=== PATIENT | male | born 1965 | race Caucasian/White ===

== ENCOUNTER 2017-10-21 08:44 | Outpatient (CLI) | payer BC ==
[2017-10-21] MEDS ORDERED: Iopamidol 370 76% 100 ML VIAL ONE (15:11)
== END 2017-10-21 08:45 | disposition home or self-care (01) ==
LOC: CT 08:44
PROVIDERS: ATTEND Internal Medicine Gastroenterology
DX: K50.00 Crohn's disease of small intestine without complications (principal)
CPT/HCPCS: 74178

== ENCOUNTER 2017-11-13 09:28 | Emergency (ER) | payer BC ==
[2017-11-13 10:44] LABS: #Basophils 0.1 thou/uL (0.0-0.2); #Lymphocytes 0.3 thou/uL (1.20-3.40); #Monocytes 0.6 thou/uL (0.11-0.59); #Neutrophils 9.3 thou/uL (1.40-6.50); %Basophils 0.5 % (0.0-1.0); %Eosinophils 0.3 % (0.0-10.0); %Lymphocytes 3.3 % (21.0-51.0); %Monocytes 5.4 % (0.0-10.0); %Neutrophils 90.5 % (42.0-75.0); Hemoglobin 18.6 g/dL (14.0-18.0); Mean Corpuscular HGB CONC 35.3 g/dL (32.0-36.0); Mean Corpuscular Hemoglobin 33.7 pg (27.0-31.0); Mean Corpuscular Volume 95.5 fl (80.0-94.0); Mean Platelet Volume 7.3 fL (7.4-10.4); Platelet Count 209 thou/uL (130-400); RBC Distribution Width 13.8 % (11.5-14.5); Red Blood Cell (RBC) Count 5.53 mill/uL (4.70-6.10); White Blood Cell (WBC) Count 10.3 thou/uL (4.8-10.8)
[2017-11-13 11:09] LABS: ALT (SGPT) 18 U/L (8-55); AST (SGOT) 21 U/L (5-34); Albumin 4.5 g/dL (3.5-5.0); Alkaline Phosphatase 52 U/L (40-150); Anion Gap 16 mmol/L (10-20); BUN (Urea Nitrogen) 16 mg/dL (8.4-25.7); Bilirubin, Total 1.3 mg/dL (0.2-1.2); Calc. Creatinine Clearance 0 mL/min (70-130); Carbon Dioxide 24 mmol/L (22-29); Chloride 104 mmol/L (98-107); Estimated GFR-MDRD 70; Globulin 3.4 g/dL (2.4-3.5); Glucose 118 mg/dL (70-105); Lipase 58 U/L (8-78); Potassium 3.9 mmol/L (3.5-5.1); Protein, Total 7.9 g/dL (6.0-8.3); Sodium 140 mmol/L (136-145)
[2017-11-13] MEDS ORDERED: ISOVUE-370 76%-LOCM 1 ML ONE (11:34)
--- NOTE | 2017-11-13 11:59 | CT ---
ABDOMEN AND PELVIC CT SCAN WITH IV CONTRAST: HISTORY: A 52-year-old male with a history of vomiting and constipation. The patient was diagnosed with C. di ff 3 weeks ago and is taking vancomycin. History of Crohn's disease. FINDINGS: Mild linear nonspecific stranding in the lung bases. There are numerous small low-attenuation foci w ithin the liver consistent with small cysts as well as some tiny calcific foci within the liver. Pos sible gallstone in the dependent portion of the gallbladder without evidence for acute cholecystitis by CT. Pancreas and spleen appear unremarkable. Adrenal glands are unremarkable. No renal calculus or acute obstruction. There are noted to be markedly abnormally dilated loops of small bowel, mo stly ileum probably extending back into the jejunum. There is some markedly narrowed somewhat thick- walled distal ileum including a small focus of terminal ileum with some minimal scattered surrounding mesenteric fat stranding in the right lower quadrant and some what appears to be free intraperitonea l fluid in the right lower quadrant and also in the pelvis. This appearance certainly could be consi stent with changes of Crohn's disease. IVC filter in lace. Right iliac vein and inferior IVC stent . IMPRESSION: Evidence for Crohn's disease with multiple fairly long segments of narrowing and wall thickening of t he distal ileum and terminal ileum with marked proximal small bowel dilatation with 1 loop measuring approximately 7 cm in diameter. There is some nonspecific fat stranding in the right abdominal mesen rossi which may represent inflammation, either acute or chronic. There is some free fluid in the righ t lower abdomen and pelvis. No CT evidence for acute appendicitis. Multiple small liver cysts and t iny liver calcific foci. No renal calculus or obstruction. Other findings as above. POS: JOSE
[2017-11-13] MEDS ORDERED: Ondansetron ODT 8 MG TAB ONE (13:18)
== END 2017-11-13 13:26 | disposition home or self-care (01) ==
LOC: ERS 09:28
DX: K59.00 Constipation, unspecified (principal); K50.90 Crohn's disease, unspecified, without complications; Z79.01 Long term (current) use of anticoagulants; Z79.899 Other long term (current) drug therapy
CPT/HCPCS: 74177; 80053; 83605; 83690; 85025

== ENCOUNTER 2017-11-13 15:30 | Inpatient (IN) | payer BC ==
[2017-11-13 16:25] VITALS: BMI 26.2
[2017-11-13] MEDS ORDERED: Ondansetron HCl/PF 4 MG/2 ML Vial IVP PRN (18:41)
[2017-11-13] MEDS ORDERED: traMADol HCl 50 MG TAB PO PRN (18:41)
[2017-11-13] MEDS ORDERED: hydrALAZINE 20 MG/ML VIAL SLOW IVP PRN (18:41)
[2017-11-13 19:23] LABS: INR-International Normal Ratio 2.4; Prothrombin Time 27.3 SEC (12.0-14.7)
[2017-11-13] MEDS: NS 0.9% w/ 20 MEQ KCL 1,000 ML/1,000 ML BAG IV SCH (20:25)
[2017-11-13] MEDS: Acetaminophen 325 MG TAB PO PRN (20:30)
--- NOTE | 2017-11-14 00:41 | HP ---
PRIMARY CARE PHYSICIAN: Fernie Joe, Physician Shrinking Machine Operator. ESTHETICIAN: Jerry Sanders MD CHIEF COMPLAINT: Diarrhea, abdominal pain, and vomiting. HISTORY OF PRESENT ILLNESS: Mr. Hanson is a pleasant 52-year-old gentleman who was directly admi tted from Dr. Sanders's office due to concerns for possible small-bowel obstruction. The patient's prob lems began about 2.5-3 weeks ago. He began having diarrhea, which was much more than his usual amoun t and he was due for a checkup with Dr. Sanders in any way, so he went ahead and saw him. He had some l ab work done as well as some stool studies as well as a CT scan. He was told that the CT scan was ok ay at that time; however, the stool sample had come back positive for C. difficile. He was started o n oral vancomycin and he took this for about 10 days. He says that his symptoms did not really get m uch better. In fact, he was having up to 15 stools a day and vancomycin was changed to Flagyl. Howell cierra, he said the symptoms got even worse and especially with regard to side effects from the Flagyl, he began having a terrible taste in his mouth, he began feeling nauseated and feels like he was "floa ting." He took this for about 5 days and then was given another round of vancomycin. By this time o n Friday, yesterday, he began having severe abdominal pain and his stomach was bloating. He began vomiting several times. He said he really needed to find out what was going on, so he went to the e mergency room. There, he had a CT scan done as well as some lab work and he was given a shot for shelby sea as well as a shot for the cramping and was released. He says that when he got in the parking lot , he vomited about 6 more times and says this time, he went to see Dr. Sanders. He was seen in his offi ce and the lab work and CT scans were reviewed and he is being admitted for concerns for partial ralph l obstruction. The patient denies having any fever during this time. His last bowel movement was ye sterday and it was small and normal and currently, he does continue to have some cramping abdominal p ain, but does not have any nausea. REVIEW OF SYSTEMS: Constitutional: He denies any fevers or chills, no night sweats, no weight loss. HEENT: No headaches, no dizziness, no visual changes, no sore throat, rhinorrhea, neck pain, no ad enopathy. Pulmonary: No hemoptysis, no cough, no wheezing. Cardiovascular: He denies any chest pa in, no shortness of breath, no PND, no orthopnea. Gastrointestinal: [facility] Genitourinary: No urinary frequency, hematuria, no hesitancy. Neurologic: No focal weakness, numbness, no seizures. Psychiatric: No symptoms of anxiety or depression. Skin and Integument: No skin changes. No rash. 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 PAST SURGICAL HISTORY: He has had a stent placed in the right leg in the vein, history of right DVT as well as an IVC filter placed. ALLERGIES: HEPARIN. SOCIAL HISTORY: He is a nonsmoker, nondrinker. He is . He works as a tractor salesman. FAMILY HISTORY: His sister also has Crohn disease. CURRENT MEDICATIONS: Include warfarin, he tells 3 mg daily; azathioprine 200 mg daily, Remicade 100 mg IV as directed. PHYSICAL EXAMINATION: GENERAL: She is alert and oriented. He appears to be in no acute distress. VITAL SIGNS: Blood pressure was 139/90, heart rate 90, respiratory rate of 20, temperature is 97.4. HEENT: His pupils are equal, round, and reactive. Extraocular muscles are intact. His sclerae are anicteric. Throat: No erythema, no exudates. He does have dry mucous membranes. Uvula is midline. NECK: There is no adenopathy, no bruits. LUNGS: Clear to auscultation. There is no wheezing, no rales. CARDIOVASCULAR: He has a normal S1, S2. I did not appreciate an S3 or S4. No murmurs, clicks, or r ubs. ABDOMEN: Soft, it is mildly distended. He has got some diffuse tenderness. There is no rebound, no guarding, no organomegaly. EXTREMITIES: There is no clubbing, cyanosis, no edema. NEUROLOGICALLY: The exam is nonfocal. LABORATORY RESULTS: These were performed earlier today in the emergency room and white blood cell co unt is 10.3, hemoglobin 18.6, hematocrit is 52.8, platelet count is 209. Sodium is 140, potassium 3. 9, chloride is 104, CO2 is 24, BUN of 16, creatinine 1.1, glucose is 118. Ferritin was elevated at 4 30. ASSESSMENT AND PLAN: 1. This is a pleasant 52-year-old gentleman who presents to the emergency room with what appears to be a partial small-bowel obstruction. He will be placed on the medical floor. We will leave him n.p .o. except for medications with sips of water and this is because he does not want IV narcotic medica tions for pain. He will be placed on IV fluids and IV antiemetics. We will hold off on an NG tube p lacement for now, but I did explain to him should he become distended or started having nausea and vo miting, then an NG tube may need to be placed. 2. History of Clostridium difficile infection. He has had several weeks of either vancomycin or Fla gyl. No diarrhea at present. Therefore, we will check stool studies and hold off on treating for Cl ostridium difficile unless the antigens or toxins are positive, that is if recommended by Gastroenter ology. 3. History of deep vein thrombosis. We will continue warfarin. Monitor his PT and INR. Since he w ill be n.p.o. There is risk that his INR could become supratherapeutic. We will be cautious of this and should he not be able to tolerate p.o., we may need to find an alternate form. Unfortunately, francisco javier pantoja is allergic to HEPARIN and therefore we will need to avoid this at all cost. Otherwise, the patien t will also be placed in an IV proton pump inhibitor and we will monitor his electrolytes and replace as needed.
--- NOTE | 2017-11-14 01:56 | CON ---
DATE OF CONSULTATION: 11/13/2017 REQUESTING PHYSICIAN: Noe Nair M.D. REASON FOR CONSULTATION: Crohn's disease. HISTORY OF PRESENT ILLNESS: Fan Hanson is a very pleasant 52-year-old man, patient o f my GI colleague, Dr. Mikal Sanders. Dr. Sanders follows him for Crohn's disease. This has been severe i n the past. He has a history of fistula repair. He is currently on maintenance therapy with Remicad e 10 mg/kg every 6 weeks and azathioprine 200 mg daily. His last EGD and colonoscopy were in 12/2016 . At that time endoscopically, the patient only had grade B esophagitis and otherwise the EGD and th e colonoscopy to the terminal ileum were endoscopically normal. Terminal ileum and colon biopsies di d demonstrate chronic inflammation. The patient does have small bowel disease. Within the past sanjiv h, he had a CT enterography which demonstrated several areas of thickening and inflammatory changes i n the distal and terminal ileum with some areas of more proximal bowel dilation. The patient relates that for the past 4 weeks or so now he has had worsening symptoms of diarrhea and migratory abdomina l pain. The diarrhea got quite severe in late September, he had stool test and this was positive for C. difficile, so he was started on vancomycin. Initially, he felt his diarrhea only worsen on the vanco mycin, so this was switched to Flagyl and then eventually switched back to vancomycin. He completed several weeks of antibiotics overall. Despite this, he really did not have much improvement in his a bdominal pain or diarrhea. Now over the past couple of days, his bowel movements have slowed way karen n. He has not had any bowel movement today, but his abdominal pain got acutely worse. His abdomen b ecame distended and he had an episode of vomiting this morning. Currently, he is feeling a little bi t better tonight. He has not had to have a nasogastric tube placed. CT scan from earlier today demo nstrates multiple long segments of narrowing and thickening in the distal and terminal ileum with pro ximal bowel dilation measuring up to 7 cm in one area also small amount of free fluid in the right lo wer quadrant. Labs are essentially unremarkable, though he is hemoconcentrated with hemoglobin of 18 .6. Last stool studies were from 10/21/2017. The patient has been admitted for IV steroid administr ation and supportive care. REVIEW OF SYSTEMS: Full review of systems including constitutional, head, eyes, ears, nose, throat, GI, , cardiovascular, respiratory, musculoskeletal, and neurologic systems is negative except as no ryan in the HPI. PAST MEDICAL HISTORY: Crohn's disease, iron deficiency anemia, fistula repair, deep vein thrombosis, and chronic anticoagulation. ALLERGIES: HEPARIN. OUTPATIENT MEDICATIONS: Coumadin, Remicade 10 mg/kg every 6 weeks, and azathioprine 200 mg daily. INPATIENT MEDICATIONS: IV methylprednisolone 20 mg q.6 hours, Tylenol p.r.n., Coumadin, and Zofran. SOCIAL HISTORY: No smoking. Alcohol use is occasional. FAMILY HISTORY: The patient has a sister with Crohn's disease. PHYSICAL EXAMINATION: VITAL SIGNS: Temperature 98.7, pulse 77, blood pressure 126/81, 93% oxygen saturation on room air. GENERAL: A 52-year-old man lying comfortably in bed in good spirits, no acute distress. SKIN: No jaundice, no rash visible or palpable. EYES: No scleral icterus. Extraocular movements are intact. ENT: Mucous membranes are moist. No oral lesions. LYMPH: No submandibular or supraclavicular lymphadenopathy. THYROID: Nontender to palpation. HEART: Regular rate and rhythm. LUNGS: Clear to auscultation bilaterally. ABDOMEN: Mild to moderate distention, tympanitic to percussion throughout. Bowel sounds are absent. The abdomen is diffusely tender to palpation, though mildly so. No guarding or rebound tenderness. No masses or organomegaly appreciated. EXTREMITIES: No peripheral edema. VESSELS: Radial pulses are 2+ bilaterally. NEUROLOGIC: Cranial nerves II-XII intact bilaterally. No focal deficits. LABORATORY STUDIES: Hemoglobin 18.6, WBC 10.3, platelets 209. INR 2.4. Lactic acid 1.9. BUN 16 an d creatinine 1.10. Total bilirubin 1.3, alkaline phosphatase 52, AST 21, ALT 18, albumin 4.5, and li pase 58. Last stool studies from 10/21/2017 showed C. difficile antigen positive and positive by PCR . CMV serology was negative at that time. IMAGING STUDIES: CT abdomen and pelvis from earlier today demonstrates multiple long segments of joanne rowing and thickening in the distal and terminal ileum with areas of proximal small bowel dilation me asuring up to 7 cm. There is some small amount of free fluid in the right lower quadrant. ASSESSMENT AND PLAN: 1. Crohn's ileitis, severe, active. 2. Partial small-bowel obstruction, secondary to Crohn's disease. 3. Clostridium difficile infection, recently treated. I do not think we can attribute the patient's current symptoms to his Clostridium difficile. There is no colonic dilation to suggest toxic megaco martinez. He has been treated with appropriate antibiotic therapy for just about three weeks now. Rather , the CT findings and clinical presentation seem more consistent with partial small bowel obstruction secondary to severe active Crohn's ileitis. He is doing okay with no current nausea or vomiting, so we will not plan to place a nasogastric tube at this time. I agree with Dr. Sanders's plan for treatme nt with IV steroids. He is getting IV methylprednisolone 20 mg q.6 hours. We will also continue his azathioprine 200 mg daily. In the longer term, plan to continue the Remicade as well. Future adjus tments in biologic therapy may be required, depending on the patient's response to steroid administra tion. Hopefully, this obstruction will resolve. Keep the patient n.p.o. for now, and hopefully if h e starts passing gas, we can try to slowly advance his diet over the next couple of days. Thank you for the consultation. Please call with any questions or concerns.
[2017-11-14] MEDS: NS 0.9% w/ 20 MEQ KCL 1,000 ML/1,000 ML BAG IV SCH ×2 (05:03→12:47)
[2017-11-14] MEDS: Acetaminophen 325 MG TAB PO PRN (05:08)
[2017-11-14 05:25] LABS: #Lymphocytes 0.4 thou/uL (1.20-3.40); #Monocytes 0.2 thou/uL (0.11-0.59); #Neutrophils 5.4 thou/uL (1.40-6.50); %Eosinophils 0.2 % (0.0-10.0); %Lymphocytes 6.6 % (21.0-51.0); %Monocytes 3.1 % (0.0-10.0); Hemoglobin 15.3 g/dL (14.0-18.0); Mean Corpuscular HGB CONC 34.6 g/dL (32.0-36.0); Mean Corpuscular Hemoglobin 33.4 pg (27.0-31.0); Mean Corpuscular Volume 96.5 fl (80.0-94.0); Mean Platelet Volume 7.4 fL (7.4-10.4); Platelet Count 197 thou/uL (130-400); RBC Distribution Width 13.6 % (11.5-14.5); Red Blood Cell (RBC) Count 4.57 mill/uL (4.70-6.10)
[2017-11-14 05:26] LABS: INR-International Normal Ratio 2.7; Prothrombin Time 29.9 SEC (12.0-14.7)
[2017-11-14 05:37] LABS: Anion Gap 10 mmol/L (10-20); BUN (Urea Nitrogen) 17 mg/dL (8.4-25.7); Calc. Creatinine Clearance 106 mL/min (70-130); Calcium 8.9 mg/dL (7.8-10.44); Carbon Dioxide 24 mmol/L (22-29); Chloride 111 mmol/L (98-107); Estimated GFR-MDRD 73; Glucose 138 mg/dL (70-105); Potassium 4.7 mmol/L (3.5-5.1); Sodium 140 mmol/L (136-145)
[2017-11-14] MEDS: azaTHIOprine 50 MG TAB PO SCH (08:37)
--- NOTE | 2017-11-14 14:26 | PRG ---
DATE OF SERVICE: 11/14/2017 SUBJECTIVE: Mr. Hanson reports feeling better today. His abdominal cramping pain is less. He h ad a small bowel movement this morning that was semi-formed. No further nausea or vomiting. Abdomin al distention is less. PHYSICAL EXAMINATION: VITAL SIGNS: Temperature is 98.0, blood pressure 138/83, pulse of 56. GENERAL: He is alert, conversant, in no distress. HEENT: Shows anicteric sclerae. CARDIOVASCULAR: Shows normal S1, S2. Regular rate and rhythm. CHEST: Shows breath sounds. ABDOMEN: Mildly distended. No tympany. He does have bowel sounds. Mild diffuse tender without any focal severe tenderness. No guarding or rebound. EXTREMITIES: Shows no edema. LABORATORY DATA: Sodium 140, potassium 4.7, chloride 111, CO2 24, creatinine 1.06, BUN 17, INR is 2. 7. Sodium 140, potassium 4.7, chloride 111, CO2 24, creatinine 1.06. ASSESSMENT: 1. Crohn's flare with severe ileitis on CT with proximal obstruction, clinically better. Exam is fa irly benign with much less distended abdomen and resolution of nausea and vomiting. He may also have some degree of fibrostenotic disease already. 2. Clostridium difficile colitis, clinically appears to be responded to oral vancomycin prior to adm ission. The patient no longer has diarrhea. 3. Small-bowel obstruction, clinically resolving. PLAN: 1. The patient is overdue for his Remicade 10 mg/kg every 6 weeks that was scheduled to be given 2 w eeks ago. We will give the patient an infusion of Remicade 10 mg/kg now as he does not appear to hav e any complicated Clostridium difficile infection. 2. Continue azathioprine and methylprednisolone 20 mg IV q.6 hours. 3. Clear liquids. 4. Would likely change the patient to a different biologic once discharged.
[2017-11-14] MEDS ORDERED: SODIUM CHLORIDE 0.9% IVPB SCH ×2 (15:30→16:15)
[2017-11-14] MEDS ORDERED: INFLIXIMAB IVPB SCH (15:30)
[2017-11-14] MEDS ORDERED: Acetaminophen 500 MG TAB PO SCH (15:30)
--- NOTE | 2017-11-14 15:32 | PDOC.PN ---
- Subjective Encounter Start Date: 11/14/17 Encounter Start Time: 15:30 Mr. Hanson was seen today in follow-up. He says the abdominal pain is better today. He has less cramping, and has not had diarrhea. - Objective Resuscitation Status: Resuscitation Status FULL:Full Resuscitation MAR Reviewed: Yes Vital Signs & Weight: Vital Signs (12 hours) Temp Pulse Resp BP BP Pulse Ox 11/14/17 11:53 98.0 F 56 L 16 138/83 95 11/14/17 08:00 98.0 F 56 L 16 96 11/14/17 07:42 97.9 F 56 L 16 132/80 96 11/14/17 04:00 98.1 F 60 16 123/76 93 L Weight Weight 205 lb I&O: 11/13/17 11/14/17 11/15/17 06:59 06:59 06:59 Intake Total 1200 Balance 1200 Result Diagrams: 11/14/17 04:41 11/14/17 04:41 Phys Exam - Physical Examination HEENT: PERRLA Respiratory: no wheezing, no rales, no rhonchi, clear to auscultation bilateral Cardiovascular: RRR, no significant murmur, no rub Gastrointestinal: soft, no distention, positive bowel sounds + mild diffuse tenderness, no rebound Musculoskeletal: no edema Dx/Plan (1) Small bowel obstruction Code(s): K56.609 - UNSP INTESTNL OBST, UNSP TO PARTIAL VERSUS COMPLETE OBST Status: Acute (2) Crohn's disease Code(s): K50.90 - CROHN'S DISEASE, UNSPECIFIED, WITHOUT COMPLICATIONS Status: Acute (3) Deep vein thrombosis Code(s): I82.409 - ACUTE EMBOLISM AND THOMBOS UNSP DEEP VN UNSP LOWER EXTREMITY Status: Acute - Plan * Small bowel obstruction- resolving. His diet has been advanced to clear liquids * Crohn's disease flare- this is improving with steroids and he was given a dose of remicade * History of DVT on coumadin- INR is 2.7 today- will continue to monitor * Recent C. diff colitis- repeat stool studies are negative, will continue off antibiotic treatment.
[2017-11-14] MEDS ORDERED: INFLIXIMAB DYYB IVPB SCH (16:15)
[2017-11-14] MEDS ORDERED: Warfarin Sodium 1.5 MG TAB PO SCH (17:00)
[2017-11-15] MEDS: NS 0.9% w/ 20 MEQ KCL 1,000 ML/1,000 ML BAG IV SCH ×3 (01:22→21:22)
[2017-11-15 04:34] LABS: INR-International Normal Ratio 3.2; Prothrombin Time 34.3 SEC (12.0-14.7)
[2017-11-15] MEDS: Acetaminophen 325 MG TAB PO PRN ×3 (05:59→21:22)
[2017-11-15] MEDS: azaTHIOprine 50 MG TAB PO SCH (08:33)
--- NOTE | 2017-11-15 13:07 | PRG ---
DATE OF SERVICE: 11/15/2017 SUBJECTIVE: Mr. Hanson is doing pretty well today. He started having some bowel movements. He had 2 looser stools earlier today. He did have a bit of a setback with regard to abdominal pain and bloating with the liquid diet last night, but he tolerated his liquid diet for breakfast pretty well today. No nausea or vomiting. No other complaints. PHYSICAL EXAMINATION: VITAL SIGNS: Temperature 98.1, pulse 50, blood pressure 126/80, 95% oxygen saturation on room air. GENERAL: No acute distress. HEART: Regular rate and rhythm. LUNGS: Clear to auscultation bilaterally. ABDOMEN: Mild distention. Dull to percussion. Bowel sounds are few and far between. Overall, the abdomen is silent. EXTREMITIES: No peripheral edema. LABORATORY STUDIES: INR 3.2. ASSESSMENT AND PLAN: 1. Severe ileitis with a small-bowel obstruction, clinically improving slowly. 2. Clostridium difficile infection, clinically appears to have responded to oral vancomycin prior to admission, with no active symptoms of Clostridium difficile. The patient received infliximab infusi on yesterday. Overall, his clinical status is improved, but quite slowly. We should continue to slo wly advance his diet only as tolerated. He will stick with the clear liquids for the remainder of day, and if doing well tomorrow morning, we will try to advance to full liquid diet. Continue the IV methylprednisolone 20 mg IV q.6 hours for now.
--- NOTE | 2017-11-15 16:27 | PDOC.PN ---
- Subjective Encounter Start Date: 11/15/17 Encounter Start Time: 16:26 Mr. Hanson was seen today in follow-up of Crohn's disease. He says he notes a bit more abdominal distention today. He also notes continued abdominal soreness. - Objective Resuscitation Status: Resuscitation Status FULL:Full Resuscitation MAR Reviewed: Yes Vital Signs & Weight: Vital Signs (12 hours) Temp Pulse Resp BP Pulse Ox 11/15/17 08:00 98.1 F 50 L 16 95 11/15/17 07:36 98.1 F 50 L 16 126/80 95 Weight Weight 205 lb I&O: 11/14/17 11/15/17 11/16/17 06:59 06:59 06:59 Intake Total 1200 2840 360 Balance 1200 2840 360 Result Diagrams: 11/14/17 04:41 11/14/17 04:41 Phys Exam - Physical Examination HEENT: PERRLA Respiratory: no wheezing, no rales, no rhonchi, clear to auscultation bilateral Cardiovascular: RRR, no significant murmur Gastrointestinal: soft, positive bowel sounds + diffuse tenderness no rebound or guarding Musculoskeletal: no edema Dx/Plan (1) Small bowel obstruction Code(s): K56.609 - UNSP INTESTNL OBST, UNSP TO PARTIAL VERSUS COMPLETE OBST Status: Acute (2) Crohn's disease Code(s): K50.90 - CROHN'S DISEASE, UNSPECIFIED, WITHOUT COMPLICATIONS Status: Acute (3) Deep vein thrombosis Code(s): I82.409 - ACUTE EMBOLISM AND THOMBOS UNSP DEEP VN UNSP LOWER EXTREMITY Status: Acute - Plan * Crohn's disease flare- as per Gastroenterology- continued IV steroids, and clear liquid diet * DVT- his INR is slightly elevated- will hold his dose of coumadin this evening * Continue to monitor INR closely.
[2017-11-15] MEDS ORDERED: Ondansetron ODT 4 MG TAB PO PRN (21:28)
[2017-11-16 04:27] LABS: Hemoglobin 14.3 g/dL (14.0-18.0); Platelet Count 173 thou/uL (130-400)
[2017-11-16 04:32] LABS: INR-International Normal Ratio 3.2; Prothrombin Time 34.6 SEC (12.0-14.7)
[2017-11-16] MEDS: NS 0.9% w/ 20 MEQ KCL 1,000 ML/1,000 ML BAG IV SCH ×2 (06:11→06:15)
[2017-11-16] MEDS: azaTHIOprine 50 MG TAB PO SCH (08:03)
--- NOTE | 2017-11-16 12:54 | PRG ---
DATE OF SERVICE: 11/16/2017 SUBJECTIVE: Mr. Hanson spent a lot of yesterday feeling quite bloated, but today he says he is f eeling a lot better. He feels the bloating has gone down. He is passing a lot of gas. He even pass ed some liquid stool. There is no nausea or vomiting. OBJECTIVE: VITAL SIGNS: Temperature 97.5, pulse 50, blood pressure rather is 138/89, and 95% oxygen saturation on room air. GENERAL: No acute distress. HEART: Regular rate and rhythm. LUNGS: Clear to auscultation bilaterally. ABDOMEN: Mild distention, tympanitic to percussion. Bowel sounds are now present though hypoactive. Nontender to palpation. EXTREMITIES: No peripheral edema. LABORATORY STUDIES: Hemoglobin 14.3, hematocrit 42.1, platelets 173. INR 3.2. ASSESSMENT AND PLAN: 1. Crohn's ileitis, with partial small-bowel obstruction. This appears to be slowly improving. Con tinue IV steroids. We will advance him to full liquid diet and see how he does. 2. Clostridium difficile infection. This was recently treated. He has finished antibiotic therapy. Current symptoms not consistent with recurrence of Clostridium difficile.
--- NOTE | 2017-11-16 16:53 | PDOC.PN ---
- Subjective Encounter Start Date: 11/16/17 Encounter Start Time: 16:52 Mr. Hanson was seen today in follow-up of Crohn's disease flare and DVT. He does not have any complaints. He says his abdomen is still a bit tight and sore. No new complaints. - Objective Resuscitation Status: Resuscitation Status FULL:Full Resuscitation MAR Reviewed: Yes Vital Signs & Weight: Vital Signs (12 hours) Temp Pulse Resp BP Pulse Ox 11/16/17 08:00 97.5 F L 50 L 16 138/89 95 Weight Weight 205 lb I&O: 11/15/17 11/16/17 11/17/17 06:59 06:59 06:59 Intake Total 2840 1960 360 Balance 2840 1960 360 Result Diagrams: 11/16/17 03:58 11/14/17 04:41 Phys Exam - Physical Examination HEENT: PERRLA Respiratory: no wheezing, no rales, no rhonchi, clear to auscultation bilateral Cardiovascular: RRR, no significant murmur Gastrointestinal: soft, no distention, positive bowel sounds + mild diffuse tenderness Musculoskeletal: no edema Dx/Plan (1) Small bowel obstruction Code(s): K56.609 - UNSP INTESTNL OBST, UNSP TO PARTIAL VERSUS COMPLETE OBST Status: Acute (2) Crohn's disease Code(s): K50.90 - CROHN'S DISEASE, UNSPECIFIED, WITHOUT COMPLICATIONS Status: Acute (3) Deep vein thrombosis Code(s): I82.409 - ACUTE EMBOLISM AND THOMBOS UNSP DEEP VN UNSP LOWER EXTREMITY Status: Acute - Plan * SBO- resolved * Crohn's disease flare- patient continues on IV steroids * History of DVT- his INR was again 3.2 today- will continue to hold coumadin * Advance diet as per GI .
[2017-11-16] MEDS: Acetaminophen 325 MG TAB PO PRN (16:58)
[2017-11-16] MEDS: Famotidine 20 MG TAB PO SCH (21:54)
[2017-11-17 05:30] LABS: INR-International Normal Ratio 2.6; Prothrombin Time 29.3 SEC (12.0-14.7)
[2017-11-17] MEDS: Acetaminophen 325 MG TAB PO PRN ×2 (08:10→20:10)
[2017-11-17] MEDS: Famotidine 20 MG TAB PO SCH ×2 (08:10→20:10)
[2017-11-17] MEDS: azaTHIOprine 50 MG TAB PO SCH (08:10)
--- NOTE | 2017-11-17 10:47 | PRG ---
DATE OF SERVICE: 11/17/2017 SUBJECTIVE: Mr. Hanson is feeling pretty well this morning. He is tolerating his full liquid di et, still has a little bit of mild abdominal bloating, but he is passing gas and had several more bow el movements yesterday. No more vomiting. OBJECTIVE: VITAL SIGNS: Temperature 98.4, pulse 52, blood pressure 129/82, 96% oxygen saturation on room air. GENERAL: No acute distress. HEART: Regular rate and rhythm. LUNGS: Clear to auscultation bilaterally. ABDOMEN: Bowel sounds are present, soft, mild tenderness to palpation. EXTREMITIES: No peripheral edema. LABORATORY STUDIES: INR 2.6 today. ASSESSMENT AND PLAN: 1. Partial small-bowel obstruction, clinically improving. 2. Crohn's ileitis. Mr. Hanson is doing pretty well with a full liquid diet. Today, we will tr y to cautiously advance him to a fiber restricted diet. I had a long discussion with him regarding t he importance of sticking with a low residue diet going forward. I asked him to start slow and see h ow he does with the solid food today. Hopefully, if he does well with advancement of his diet, he co uld potentially be discharged tomorrow. At that time, we would transition him to prednisone 60 mg selina nuñez, and follow up with Dr. Sanders for discussion of possible change in his biologic therapy.
--- NOTE | 2017-11-17 11:34 | PDOC.PN ---
- Subjective Encounter Start Date: 11/17/17 Encounter Start Time: 11:32 Mr. Hanson was seen today in follow-up of Crohn's disease flair. He says he is feeling better. The abdominal pain has improved. - Objective Resuscitation Status: Resuscitation Status FULL:Full Resuscitation MAR Reviewed: Yes Vital Signs & Weight: Vital Signs (12 hours) Temp Pulse Resp BP Pulse Ox 11/17/17 08:00 98.4 F 52 L 18 96 11/17/17 07:52 98.4 F 52 L 18 129/82 96 Weight Weight 205 lb I&O: 11/16/17 11/17/17 11/18/17 06:59 06:59 06:59 Intake Total 1960 1080 Balance 1960 1080 Result Diagrams: 11/16/17 03:58 11/14/17 04:41 Phys Exam - Physical Examination HEENT: PERRLA Respiratory: no wheezing, no rales, no rhonchi, clear to auscultation bilateral Cardiovascular: RRR, no significant murmur, no rub Gastrointestinal: soft, non-tender, positive bowel sounds Musculoskeletal: no edema Dx/Plan (1) Small bowel obstruction Code(s): K56.609 - UNSP INTESTNL OBST, UNSP TO PARTIAL VERSUS COMPLETE OBST Status: Acute (2) Crohn's disease Code(s): K50.90 - CROHN'S DISEASE, UNSPECIFIED, WITHOUT COMPLICATIONS Status: Acute (3) Deep vein thrombosis Code(s): I82.409 - ACUTE EMBOLISM AND THOMBOS UNSP DEEP VN UNSP LOWER EXTREMITY Status: Acute - Plan * Crohn's disease flare- improving, he may be changed to oral Prednisone tomorrow * He has been advanced to a solid diet today * DVT- on chronic coumadin- his INR was 2.6 today- will give half his usual dose of coumadin 1mg today * Possibly home tomorrow.
[2017-11-17] MEDS ORDERED: Warfarin Sodium 1 MG TAB PO SCH (17:00)
[2017-11-18 05:21] LABS: INR-International Normal Ratio 2.1; Prothrombin Time 23.9 SEC (12.0-14.7)
[2017-11-18] MEDS: Acetaminophen 325 MG TAB PO PRN ×2 (06:47→14:47)
[2017-11-18 07:46] VITALS: BP 121/77; TEMP 97.9
[2017-11-18] MEDS: Famotidine 20 MG TAB PO SCH (08:17)
[2017-11-18] MEDS: azaTHIOprine 50 MG TAB PO SCH (08:18)
[2017-11-18] MEDS ORDERED: predniSONE 20 MG TAB PO SCH (11:00)
--- NOTE | 2017-11-18 13:35 | DIS ---
PRIMARY CARE PHYSICIAN: Dr. Fernie Joe. DATE OF ADMISSION: 11/13/2017 DATE OF DISCHARGE: 11/18/2017 DISCHARGE DIAGNOSES: 1. Flareup of Crohn's disease. 2. Partial small-bowel obstruction. CONDITION OF PATIENT ON THE DAY OF DISCHARGE: Stable. I assess Mr. Hanson on the day of dischar ge. He denies any chest pain or shortness of breath. He denies any fevers or chills. He reports flowers ving bowel movements. He denies any diarrhea. PHYSICAL EXAMINATION: VITAL SIGNS: Stable. HEART: S1 and S2 are heard, regular. LUNGS: Clear to auscultation bilaterally. ABDOMEN: Soft, nontender, bowel sounds are heard. DISCHARGE MEDICATIONS: Prednisone 60 mg daily, prescribed for 2 weeks until he has seen by Gastroent erology Service, following which taper will be considered. Coumadin 1.5 mg daily, Remicade as direct ed, azathioprine 200 mg daily. CONSULTATIONS DURING THIS HOSPITALIZATION: Gastroenterology, Dr. Jakob Davidson. HOSPITAL COURSE: Mr. Hanson is a pleasant 52-year-old gentleman who was admitted to [facility] on 11/13/2017 for partial small bowel obstruction secondary to Crohn's flare. He was treated with intravenous steroids. He was seen by Gastroenterology Service. He improved clin ically, and is being discharged home in a stable condition. On 11/18/2017, he has an INR of 2.1. INR was 2.6 on 11/17/2017, 3.2 on 11/16/2017 and on 11/15/2017, and 2.7 on 11/14/2017. Hemoglobin was 14.3 on 11/16/2017. Creatinine was 1.06 on 11/14/2017. He is advised to follow up with his centrifugal spinner within the next couple of weeks. Many thanks for allowing me to participate in your patient's care. Please feel free to contact me wi th any questions or concerns. DISCHARGE DESTINATION: Home. TOTAL AMOUNT OF TIME SPENT COORDINATING THIS DISCHARGE: 31 minutes.
[2017-11-19] MEDS ORDERED: predniSONE 20 MG TAB PO SCH (08:00)
== END 2017-11-18 16:08 | disposition home or self-care (01) | DRG 386 ==
LOC: T4-A 15:30
PROVIDERS: ADMIT Family Medicine; ATTEND Family Medicine
DX: K50.012 Crohn's disease of small intestine with intestinal obstruction (principal); I82.409 Acute embolism and thrombosis of unspecified deep veins of unspecified lower extremity; Z79.01 Long term (current) use of anticoagulants; Z86.718 Personal history of other venous thrombosis and embolism
CPT/HCPCS: 36415; 74177; 80048; 80053; 83605; 83690; 85014; 85018; 85025; 85049; 85610; 87324; 87449; 96372; A4216; J1745; J2920; J7050; J7500; J7506; Q0162; Q5103

== ENCOUNTER 2018-07-06 10:18 | Outpatient (CLI) | payer BC ==
[2018-07-06 11:36] LABS: #Lymphocytes 0.3 thou/uL (1.20-3.40); #Monocytes 0.4 thou/uL (0.11-0.59); #Neutrophils 4.7 thou/uL (1.40-6.50); %Basophils 0.2 % (0.0-1.0); %Eosinophils 0.6 % (0.0-10.0); %Lymphocytes 5.5 % (21.0-51.0); %Monocytes 6.6 % (0.0-10.0); %Neutrophils 87.1 % (42.0-75.0); Hemoglobin 14.4 g/dL (14.0-18.0); Mean Corpuscular HGB CONC 32.3 g/dL (32.0-36.0); Mean Corpuscular Hemoglobin 31.1 pg (27.0-31.0); Mean Corpuscular Volume 96.4 fL (78.0-98.0); Mean Platelet Volume 7.4 fL (7.4-10.4); Platelet Count 220 thou/uL (130-400); RBC Distribution Width 13.3 % (11.5-14.5); Red Blood Cell (RBC) Count 4.62 mill/uL (4.70-6.10); White Blood Cell (WBC) Count 5.4 thou/uL (4.8-10.8)
[2018-07-06 11:40] LABS: PTT 35.1 SEC (22.9-36.1); Prothrombin Time 22.8 SEC (12.0-14.7)
[2018-07-06 12:00] LABS: Anion Gap 11 mmol/L (10-20); BUN (Urea Nitrogen) 17 mg/dL (8.4-25.7); Calc. Creatinine Clearance 0 mL/min (70-130); Calcium 9.2 mg/dL (7.8-10.44); Carbon Dioxide 24 mmol/L (22-29); Chloride 107 mmol/L (98-107); Estimated GFR-MDRD 55; Glucose 96 mg/dL (70-105); Potassium 4.1 mmol/L (3.5-5.1); Sodium 138 mmol/L (136-145)
== END 2018-07-06 10:19 | disposition home or self-care (01) ==
LOC: LABBT 10:18
PROVIDERS: ATTEND Surgery
DX: Z01.812 Encounter for preprocedural laboratory examination (principal); K50.90 Crohn's disease, unspecified, without complications
CPT/HCPCS: 80048; 85025; 85610; 85730

== ENCOUNTER 2018-07-06 10:30 | Inpatient (IN) | payer BC ==
[2018-07-06 10:35] VITALS: BMI 26.3
[2018-07-13] MEDS ORDERED: Bupivacaine HCl 0.5%/Epinephrine 1:200,000/PF 30 ml Vial ONE (10:08)
[2018-07-13] MEDS ORDERED: cefOXitin Sodium/Dextrose,Iso 2 GM in Premix Bag 1 BAG IVPB SCH (12:45)
[2018-07-13] MEDS ORDERED: Fentanyl 100 MCG/2 ML VIAL ONE (12:59)
[2018-07-13] MEDS ORDERED: Midazolam HCl 2 mg/2 ml Vial ONE (12:59)
[2018-07-13] MEDS ORDERED: Fentanyl 250 MCG/5 ML VIAL ONE (13:43)
[2018-07-13] MEDS ORDERED: Morphine 4 MG/ML VIAL ONE (13:43)
[2018-07-13] MEDS ORDERED: Dexamethasone 4 mg/ml Vial ONE (15:48)
[2018-07-13] MEDS ORDERED: Ondansetron HCl/PF 4 MG/2 ML Vial IVP PRN (15:56)
[2018-07-13] MEDS ORDERED: Promethazine HCl 25 MG/ML VIAL SLOW IVP PRN (15:56)
[2018-07-13] MEDS ORDERED: Promethazine HCl 25 MG/ML VIAL IM PRN ×2 (15:56→17:00)
[2018-07-13] MEDS ORDERED: hydrALAZINE 20 MG/ML VIAL SLOW IVP PRN (17:00)
[2018-07-13] MEDS ORDERED: Fentanyl 100 MCG/2 ML VIAL SLOW IVP PRN (17:00)
[2018-07-13] MEDS: Ondansetron PF 4 MG/2 ML Vial IVP PRN (18:02)
[2018-07-13] MEDS: Sodium Chloride 0.9% 1,000 ML IV SCH (18:05)
[2018-07-13] MEDS: Acetaminophen 1,000 MG in Premix Bag 1 BAG IVPB SCH (18:05)
[2018-07-13] MEDS: Fentanyl 100 MCG/2 ML VIAL SLOW IVP PRN ×2 (19:13→21:31)
[2018-07-13] MEDS: Famotidine/PF 20 mg/2ml Vial SLOW IVP SCH (20:21)
[2018-07-13] MEDS ORDERED: PROPOFOL 200 MG/20 ML VIAL ONE (20:39)
[2018-07-13] MEDS ORDERED: Ondansetron PF 4 MG/2 ML Vial ONE (20:39)
[2018-07-13] MEDS ORDERED: Lidocaine 1% PF 5 ML VIAL ONE (20:39)
[2018-07-13] MEDS ORDERED: Dexamethasone 20 MG/5 ML VIAL ONE (20:39)
[2018-07-13] MEDS ORDERED: Glycopyrrolate 0.2 MG/ML 5 ML SYRINGE ONE (20:39)
[2018-07-13] MEDS ORDERED: PHENYLEPHRINE-NS 100 MCG/ML 10 ML SYRINGE ONE (20:39)
[2018-07-13] MEDS ORDERED: Enoxaparin Sodium 40 MG/0.4 ML SYRINGE SC SCH (21:00)
[2018-07-13] MEDS: Hydrocortisone Sod Succ/PF 100 mg/2 ml Vial IVP SCH (21:31)
--- NOTE | 2018-07-13 23:26 | OP ---
DATE OF PROCEDURE: 07/13/2018 PREOPERATIVE DIAGNOSIS: Crohn's disease with ileal stricture x2. POSTOPERATIVE DIAGNOSIS: Crohn's disease with ileal stricture x2. PROCEDURE PERFORMED: Small-bowel resection and anastomosis by Dr. Carcamo without complication. ANESTHESIA: General. ESTIMATED BLOOD LOSS: 100 mL. COMPLICATIONS: None. FINDINGS: There were 2 areas; one of severe stenosis that starts approximately 10 cm proximal to the ileocecal valve, the terminal ileum, the last 10 cm appears normal. There was another area just proximal to the more severe stricture that was removed in total for a total of approximately 12 inches of small intestine, but the ileocecal valve was spared. DESCRIPTION OF PROCEDURE: The patient was taken to the operating room and laid supine on the operating room table. After general anesthetic was obtained, a Monroe was placed. The abdomen was shaved, prepped, and draped in a sterile fashion. Midline incision was made. The abdominal cavity was entered carefully without injury. Bookwalter retractor was placed. The small bowel was dilated, it ran proximally into the ligament of Treitz without evidence of disease. Going distally the mid ileum, there starts to be Crohn's disease with fat creeping. There was a 4-inch long area of stricture that does not appear completely obstructing, but just distal to this without some significant normal intervening ileum, it was an obvious high-grade stricture with significant shortening of the mesentery and fat creeping. This ends approximately 10 to 15 cm from the ileocecal valve just enough for an anastomosis. BEULAH 75 stapler was fired just distal to the second stricture at approximately 10 cm proximal to the ileocecal valve. Stapler was fired proximal to the proximal stricture as well. Intervening segment of about 12 inches of small intestine was removed with its mesentery. There was significant fat creeping and local inflammatory effects in the mesentery. The bleeding was oversewn using 2-0 silk sutures. There probably was some mesenteric side fistulization versus old small abscesses in this area that made this dissection difficult. The segment was sent to Pathology for final diagnosis. The small bowel was brought together in an antimesenteric fashion and an antimesenteric anastomosis was performed. The common enterotomy was closed using a TA 60 stapler. The common enterotomy staple line was oversewn using Vicryl suture. The mesenteric defect was closed using Vicryl suture. A crotch stitch was placed using silk. There was no evidence of ischemia along the staple line. The worse stricture had to be peeled away from the transverse colon and in this area, there was deserosalization of the transverse colon. This was oversewn using silk suture. There was no transmural injury and no evidence of full-thickness injury to the colon in this area. The abdomen was irrigated copiously using sterile solution. Stella antibleeding starch was placed over the mesentery, where there was significant oozing that was controlled with silk sutures. All instrument counts, needle counts, lap counts were correct. PDS was used to close the fascial defect from the top and the bottom, tied in the middle. Subcutaneous tissues were irrigated copiously and then the wound was closed using 3-0 Vicryl, 4-0 Monocryl, and Dermabond. The patient was sent to Recovery in stable condition. All instrument counts, needle counts, and lap counts were correct. Job ID: [id number]
[2018-07-14] MEDS: Acetaminophen 1,000 MG in Premix Bag 1 BAG IVPB SCH ×3 (00:31→15:10)
[2018-07-14] MEDS: Fentanyl 100 MCG/2 ML VIAL SLOW IVP PRN ×6 (00:32→22:14)
[2018-07-14] MEDS: Famotidine 20 MG TAB PO SCH ×3 (03:35→20:52)
[2018-07-14] MEDS: Sodium Chloride 0.9% 1,000 ML IV SCH ×2 (06:19→21:46)
[2018-07-14] MEDS: Hydrocortisone Sod Succ/PF 100 mg/2 ml Vial IVP SCH ×3 (06:37→21:46)
[2018-07-14 07:56] LABS: #Lymphocytes 0.5 thou/uL (1.20-3.40); #Monocytes 0.7 thou/uL (0.11-0.59); #Neutrophils 5.8 thou/uL (1.40-6.50); %Eosinophils 0.2 % (0.0-10.0); %Lymphocytes 6.7 % (21.0-51.0); %Monocytes 10.3 % (0.0-10.0); %Neutrophils 82.7 % (42.0-75.0); Hemoglobin 13.9 g/dL (14.0-18.0); Mean Corpuscular HGB CONC 32.3 g/dL (32.0-36.0); Mean Corpuscular Hemoglobin 30.8 pg (27.0-31.0); Mean Corpuscular Volume 95.6 fL (78.0-98.0); Mean Platelet Volume 7.3 fL (7.4-10.4); Platelet Count 211 thou/uL (130-400); RBC Distribution Width 13.1 % (11.5-14.5)
[2018-07-14] MEDS: Famotidine/PF 20 mg/2ml Vial SLOW IVP SCH ×2 (08:26→20:42)
[2018-07-14 09:10] LABS: BUN (Urea Nitrogen) 9 mg/dL (8.4-25.7); Calc. Creatinine Clearance 116 mL/min (70-130); Calcium 8.7 mg/dL (7.8-10.44); Carbon Dioxide 19 mmol/L (22-29); Chloride 107 mmol/L (98-107); Estimated GFR-MDRD 81; Glucose 119 mg/dL (70-105); Potassium 4.2 mmol/L (3.5-5.1); Sodium 138 mmol/L (136-145)
[2018-07-14 09:18] LABS: Anion Gap 16 mmol/L (10-20)
--- NOTE | 2018-07-14 10:57 | PRG ---
DATE OF SERVICE: 07/14/2018 SUBJECTIVE: Margie is postop day #1 small-bowel resection for Crohn's. Mr. Hanson is doing well. No significant nausea. His abdomen is soft. His wound is healing well. He is minimally distended. LABORATORY DATA: White blood cell count is 7, hemoglobin is 13.9. Creatinine 0.97. ASSESSMENT: 1. Postop day #1 small bowel resection for Crohn's. 2. History of pulmonary embolism and deep venous thrombosis, restart Lovenox today. 3. Switch to oral pain control. Restart Lovenox today. Full liquids for dinner if doing well. Job ID: [id number]
[2018-07-14] MEDS: traMADol HCl 50 MG TAB PO PRN ×3 (11:39→20:43)
[2018-07-14] MEDS: Enoxaparin Sodium 80 MG/0.8 ML SYRINGE SC SCH (20:42)
[2018-07-15] MEDS: Ondansetron PF 4 MG/2 ML Vial IVP PRN (02:33)
[2018-07-15] MEDS: Hydrocortisone Sod Succ/PF 100 mg/2 ml Vial IVP SCH ×3 (05:30→21:05)
[2018-07-15] MEDS: traMADol HCl 50 MG TAB PO PRN (05:37)
[2018-07-15 05:47] LABS: #Lymphocytes 0.3 thou/uL (1.20-3.40); #Monocytes 0.8 thou/uL (0.11-0.59); %Basophils 0.1 % (0.0-1.0); %Eosinophils 0.3 % (0.0-10.0); %Lymphocytes 3.6 % (21.0-51.0); %Monocytes 8.9 % (0.0-10.0); Hemoglobin 15.7 g/dL (14.0-18.0); Mean Corpuscular HGB CONC 33.5 g/dL (32.0-36.0); Mean Corpuscular Volume 95.6 fL (78.0-98.0); Mean Platelet Volume 7.7 fL (7.4-10.4); Platelet Count 241 thou/uL (130-400); RBC Distribution Width 13.3 % (11.5-14.5); White Blood Cell (WBC) Count 9.2 thou/uL (4.8-10.8)
[2018-07-15] MEDS: Famotidine/PF 20 mg/2ml Vial SLOW IVP SCH ×2 (07:56→21:04)
[2018-07-15] MEDS: Enoxaparin Sodium 80 MG/0.8 ML SYRINGE SC SCH ×2 (07:57→21:01)
[2018-07-15] MEDS: Famotidine 20 MG TAB PO SCH ×2 (08:04→20:33)
[2018-07-15] MEDS: Sodium Chloride 0.9% 1,000 ML IV SCH ×3 (09:53→18:26)
[2018-07-15] MEDS ORDERED: Acetaminophen 1,000 MG in Premix Bag 1 BAG IVPB PRN (10:43)
[2018-07-15] MEDS: Fentanyl 100 MCG/2 ML VIAL SLOW IVP PRN ×3 (11:43→23:56)
[2018-07-15] MEDS ORDERED: Chloraseptic Spray 180 ml Bottle PO PRN (12:05)
[2018-07-15] MEDS ORDERED: Cepastat Lozenges 1 LOZ PO PRN (12:06)
--- NOTE | 2018-07-15 19:36 | PDOC.PN ---
- Subjective Encounter Start Date: 07/15/18 Encounter Start Time: 19:33 Pt seen for management of medical comorbidities including elevated blood pressure. Denies chest pain, shortness of breath, fevers or chills. - Objective MAR Reviewed: Yes Vital Signs & Weight: Vital Signs (12 hours) Temp Pulse Resp BP Pulse Ox 07/15/18 15:12 97.4 F L 117 H 24 H 148/97 H 95 07/15/18 10:53 98.4 F 106 H 22 H 142/99 H 95 07/15/18 08:00 92 L 07/15/18 07:34 98 F 107 H 22 H 156/104 H 92 L Weight Weight 205 lb I&O: 07/14/18 07/15/18 07/16/18 06:59 06:59 06:59 Intake Total 300 3470 1380 Output Total 175 9360 2125 Balance 125 -699 -099 Result Diagrams: 07/15/18 04:55 07/14/18 07:00 Additional Labs: Labs reviewed by me Phys Exam - Physical Examination Constitutional: NAD HEENT: moist MMs Neck: supple Respiratory: clear to auscultation bilateral Cardiovascular: RRR Gastrointestinal: soft Neurological: moves all 4 limbs Psychiatric: normal affect Dx/Plan (1) Elevated blood pressure reading in office without diagnosis of hypertension Code(s): R03.0 - ELEVATED BLOOD-PRESSURE READING, W/O DIAGNOSIS OF HTN Status : Acute Comment: add PRN IV hydralazine for blood pressure spikes (2) H/O venous thrombosis and embolism Code(s): Z86.718 - PERSONAL HISTORY OF OTHER VENOUS THROMBOSIS AND EMBOLISM Status: Chronic Comment: Lovenox likely to be started tomorrow (3) Crohn's disease Code(s): K50.90 - CROHN'S DISEASE, UNSPECIFIED, WITHOUT COMPLICATIONS Status: Chronic Comment: s/p surgery - Plan * . Review of Systems - Review of Systems Respiratory: negative: Cough, Shortness of Breath, SOB with Excertion, Pleuritic Pain, Wheezing Cardiovascular: negative: chest pain, palpitations, orthopnea, paroxysmal nocturnal dyspnea, edema, light headedness - Medications/Allergies Allergies/Adverse Reactions: Allergies Allergy/AdvReac Type Severity Reaction Status Date / Time heparin Allergy Verified 11/13/17 16:11 Medications: Current Medications Albuterol/Ipratropium (Duoneb) 3 ml NEB Q4H PRN PRN Reason: Wheezing Enoxaparin Sodium (Lovenox) 80 mg SC 0900,2100 [facility] Last Admin: 07/15/18 07:57 Dose: 80 mg Famotidine (Pepcid) 20 mg PO Q12HR [facility] Last Admin: 07/15/18 08:04 Dose: Not Given Famotidine (Pepcid) 20 mg SLOW IVP Q12HR [facility] Last Admin: 07/15/18 07:56 Dose: 20 mg Fentanyl (Sublimaze) 25 mcg SLOW IVP Q2H PRN PRN Reason: Mild Pain (1-3) Fentanyl (Sublimaze) 50 mcg SLOW IVP Q2H PRN PRN Reason: Moderate to Severe Pain (6-10) Last Admin: 07/15/18 11:43 Dose: 50 mcg Hydralazine HCl (Apresoline) 10 mg SLOW IVP Q4H PRN PRN Reason: SBP > 170 or DBP > 100 Hydrocortisone Sodium Succinate (Solu-Cortef) 50 mg IVP Q8HR [facility] Last Admin: 07/15/18 14:26 Dose: 50 mg Acetaminophen 1,000 mg/ Device 100 mls @ 400 mls/hr IVPB Q6H PRN PRN Reason: Fever/Mild Pain Stop: 07/16/18 10:44 Sodium Chloride (Normal Saline 0.9%) 1,000 mls @ 125 mls/hr IV .Q8H [facility] Last Admin: 07/15/18 18:26 Dose: 1,000 mls Ondansetron HCl (Zofran) 4 mg IVP Q6H PRN PRN Reason: Nausea/Vomiting Last Admin: 07/15/18 02:33 Dose: 4 mg Phenol (Chloraseptic [place] 180 Ml Bot) 0 ml PO PRN PRN PRN Reason: SORE THROAT Last Admin: 07/15/18 12:38 Dose: 1 spray Promethazine HCl (Phenergan) 12.5 mg IM Q4H PRN PRN Reason: Nausea/Vomiting Last Admin: 07/15/18 07:56 Dose: 12.5 mg Sodium Chloride (Flush - Normal Saline) 10 ml IVF PRN PRN PRN Reason: Saline Flush Throat Lozenges (Cepastat Lozenges) 1 theresa PO PRN PRN PRN Reason: SORE THROAT Last Admin: 07/15/18 12:38 Dose: 1 theresa Tramadol HCl (Ultram) 50 mg PO Q4H PRN PRN Reason: Pain Last Admin: 07/15/18 05:37 Dose: 50 mg
[2018-07-16] MEDS: Fentanyl 100 MCG/2 ML VIAL SLOW IVP PRN ×3 (04:34→16:24)
[2018-07-16] MEDS: Sodium Chloride 0.9% 1,000 ML IV SCH ×3 (04:41→19:18)
[2018-07-16] MEDS: Hydrocortisone Sod Succ/PF 100 mg/2 ml Vial IVP SCH ×3 (05:35→21:48)
[2018-07-16] MEDS: Famotidine/PF 20 mg/2ml Vial SLOW IVP SCH ×2 (09:25→21:47)
[2018-07-16] MEDS: Enoxaparin Sodium 80 MG/0.8 ML SYRINGE SC SCH ×2 (09:26→21:48)
[2018-07-16] MEDS: Famotidine 20 MG TAB PO SCH ×2 (09:33→21:38)
--- NOTE | 2018-07-16 12:57 | PDOC.PN ---
- Subjective Encounter Start Date: 07/16/18 Encounter Start Time: 08:00 Pt seen for followup re: elevated blood pressure. No complaints today. - Objective MAR Reviewed: Yes Vital Signs & Weight: Vital Signs (12 hours) Temp Pulse Resp BP Pulse Ox 07/16/18 08:00 98.2 F 78 20 157/98 H 95 07/16/18 04:06 98.2 F 88 20 160/99 H 94 L Weight Weight 205 lb I&O: 07/15/18 07/16/18 07/17/18 06:59 06:59 06:59 Intake Total 3470 2880 Output Total 3650 2750 Balance -180 130 Result Diagrams: 07/15/18 04:55 07/14/18 07:00 Additional Labs: Labs reviewed by me Phys Exam - Physical Examination Constitutional: NAD HEENT: moist MMs Neck: supple Respiratory: clear to auscultation bilateral Cardiovascular: RRR Gastrointestinal: soft Neurological: moves all 4 limbs Psychiatric: normal affect Dx/Plan (1) Elevated blood pressure reading in office without diagnosis of hypertension Code(s): R03.0 - ELEVATED BLOOD-PRESSURE READING, W/O DIAGNOSIS OF HTN Status : Acute Comment: continue PRN IV hydralazine for blood pressure spikes (2) H/O venous thrombosis and embolism Code(s): Z86.718 - PERSONAL HISTORY OF OTHER VENOUS THROMBOSIS AND EMBOLISM Status: Chronic Comment: on Lovenox (3) Crohn's disease Code(s): K50.90 - CROHN'S DISEASE, UNSPECIFIED, WITHOUT COMPLICATIONS Status: Chronic Comment: s/p surgery - Plan * . Review of Systems - Review of Systems Respiratory: negative: Cough, Shortness of Breath, SOB with Excertion, Pleuritic Pain, Wheezing Cardiovascular: negative: chest pain, palpitations, orthopnea, paroxysmal nocturnal dyspnea, edema, light headedness - Medications/Allergies Allergies/Adverse Reactions: Allergies Allergy/AdvReac Type Severity Reaction Status Date / Time heparin Allergy Verified 11/13/17 16:11 Medications: Current Medications Albuterol/Ipratropium (Duoneb) 3 ml NEB Q4H PRN PRN Reason: Wheezing Enoxaparin Sodium (Lovenox) 80 mg SC 0900,2100 [facility] Last Admin: 07/16/18 09:26 Dose: 80 mg Famotidine (Pepcid) 20 mg PO Q12HR [facility] Last Admin: 07/16/18 09:33 Dose: Not Given Famotidine (Pepcid) 20 mg SLOW IVP Q12HR [facility] Last Admin: 07/16/18 09:25 Dose: 20 mg Fentanyl (Sublimaze) 25 mcg SLOW IVP Q2H PRN PRN Reason: Mild Pain (1-3) Fentanyl (Sublimaze) 50 mcg SLOW IVP Q2H PRN PRN Reason: Moderate to Severe Pain (6-10) Last Admin: 07/16/18 11:31 Dose: 50 mcg Hydralazine HCl (Apresoline) 10 mg SLOW IVP Q4H PRN PRN Reason: SBP > 170 or DBP > 100 Last Admin: 07/15/18 21:02 Dose: 10 mg Hydrocortisone Sodium Succinate (Solu-Cortef) 50 mg IVP Q8HR [facility] Last Admin: 07/16/18 05:35 Dose: 50 mg Sodium Chloride (Normal Saline 0.9%) 1,000 mls @ 125 mls/hr IV .Q8H [facility] Last Admin: 07/16/18 09:31 Dose: 1,000 mls Ondansetron HCl (Zofran) 4 mg IVP Q6H PRN PRN Reason: Nausea/Vomiting Last Admin: 07/15/18 02:33 Dose: 4 mg Phenol (Chloraseptic [place] 180 Ml Bot) 0 ml PO PRN PRN PRN Reason: SORE THROAT Last Admin: 07/15/18 12:38 Dose: 1 spray Promethazine HCl (Phenergan) 12.5 mg IM Q4H PRN PRN Reason: Nausea/Vomiting Last Admin: 07/15/18 07:56 Dose: 12.5 mg Sodium Chloride (Flush - Normal Saline) 10 ml IVF PRN PRN PRN Reason: Saline Flush Throat Lozenges (Cepastat Lozenges) 1 theresa PO PRN PRN PRN Reason: SORE THROAT Last Admin: 07/15/18 12:38 Dose: 1 theresa Tramadol HCl (Ultram) 50 mg PO Q4H PRN PRN Reason: Pain Last Admin: 07/15/18 05:37 Dose: 50 mg
--- NOTE | 2018-07-16 13:54 | PRG ---
DATE OF SERVICE: 07/16/2018 SUBJECTIVE: Mr. Hanson feels better today. NG output initially was quite high, but it is minimal overnight. He is passing gas now. He is ambulatory. His pain is described as 4/10 in the diffuse abdomen. OBJECTIVE: VITAL SIGNS: Blood pressure is 157/98, pulse 78, and respirations 20. He is afebrile. Urine output is adequate. NG tube is only 175 overnight. ABDOMEN: Soft. Minimal bruising around the incision, but no infection. He has active bowel sounds. He is appropriately tender. ASSESSMENT: Postoperative day #3 small-bowel resection for Crohn's. PLAN: Clamp NG tube, if doing well after 4 hours. Check residuals; if less than 250, discontinue it, and start him back on clear liquids. Job ID: [id number]
[2018-07-16] MEDS: traMADol HCl 50 MG TAB PO PRN (21:54)
[2018-07-17] MEDS: Sodium Chloride 0.9% 1,000 ML IV SCH ×4 (01:06→20:47)
[2018-07-17] MEDS: traMADol HCl 50 MG TAB PO PRN ×4 (01:37→20:52)
[2018-07-17] MEDS: Hydrocortisone Sod Succ/PF 100 mg/2 ml Vial IVP SCH (06:34)
[2018-07-17 08:08] LABS: #Eosinphils 0.1 thou/uL (0.0-0.7); #Lymphocytes 0.5 thou/uL (1.20-3.40); #Monocytes 0.4 thou/uL (0.11-0.59); #Neutrophils 3.9 thou/uL (1.40-6.50); %Basophils 0.1 % (0.0-1.0); %Monocytes 7.7 % (0.0-10.0); %Neutrophils 80.2 % (42.0-75.0); Mean Corpuscular HGB CONC 33.2 g/dL (32.0-36.0); Mean Corpuscular Hemoglobin 32.2 pg (27.0-31.0); Mean Corpuscular Volume 96.9 fL (78.0-98.0); Mean Platelet Volume 7.7 fL (7.4-10.4); Platelet Count 188 thou/uL (130-400); RBC Distribution Width 13.2 % (11.5-14.5); Red Blood Cell (RBC) Count 4.04 mill/uL (4.70-6.10); White Blood Cell (WBC) Count 4.9 thou/uL (4.8-10.8)
[2018-07-17 08:22] LABS: INR-International Normal Ratio 1.5; Prothrombin Time 18.2 SEC (12.0-14.7)
[2018-07-17 08:29] LABS: Anion Gap 13 mmol/L (10-20); BUN (Urea Nitrogen) 18 mg/dL (8.4-25.7); Calc. Creatinine Clearance 134 mL/min (70-130); Calcium 8.4 mg/dL (7.8-10.44); Carbon Dioxide 18 mmol/L (22-29); Chloride 115 mmol/L (98-107); Estimated GFR-MDRD Greater than 90; Glucose 86 mg/dL (70-105); Potassium 3.9 mmol/L (3.5-5.1); Sodium 142 mmol/L (136-145)
[2018-07-17] MEDS: Enoxaparin Sodium 80 MG/0.8 ML SYRINGE SC SCH ×2 (09:16→20:47)
[2018-07-17] MEDS: Famotidine/PF 20 mg/2ml Vial SLOW IVP SCH ×2 (09:17→20:47)
[2018-07-17] MEDS: Famotidine 20 MG TAB PO SCH (09:17)
[2018-07-17] MEDS ORDERED: hydrALAZINE 20 MG/ML VIAL SLOW IVP SCH (10:00)
--- NOTE | 2018-07-17 12:17 | PDOC.PN ---
- Subjective Encounter Start Date: 07/17/18 Encounter Start Time: 07:20 Pt seen for followup re: elevated BP. Feels better, having small bowel movements. No complaints. - Objective Vital Signs & Weight: Vital Signs (12 hours) Temp Pulse Resp BP Pulse Ox 07/17/18 11:03 98 F 68 16 159/90 H 96 07/17/18 07:55 97.7 F 59 L 28 H 162/90 H 96 07/17/18 06:00 97.8 F 60 16 153/82 H 95 Weight Admit Weight 205 lb Weight 205 lb I&O: 07/16/18 07/17/18 07/18/18 06:59 06:59 06:59 Intake Total 2880 2200 Output Total 2750 1350 Balance 130 850 Result Diagrams: 07/17/18 07:42 07/17/18 07:42 Phys Exam - Physical Examination Constitutional: NAD HEENT: moist MMs Neck: supple Respiratory: clear to auscultation bilateral Cardiovascular: RRR Gastrointestinal: soft Neurological: moves all 4 limbs Psychiatric: normal affect Dx/Plan (1) Elevated blood pressure reading in office without diagnosis of hypertension Code(s): R03.0 - ELEVATED BLOOD-PRESSURE READING, W/O DIAGNOSIS OF HTN Status : Acute Comment: continue PRN IV hydralazine for blood pressure spikes, pt's SBP is elevated but below 170. Will give one time dose of IV hydralazine. (2) H/O venous thrombosis and embolism Code(s): Z86.718 - PERSONAL HISTORY OF OTHER VENOUS THROMBOSIS AND EMBOLISM Status: Chronic Comment: continue Lovenox (3) Crohn's disease Code(s): K50.90 - CROHN'S DISEASE, UNSPECIFIED, WITHOUT COMPLICATIONS Status: Chronic Comment: s/p surgery - Plan * . Review of Systems - Review of Systems Respiratory: negative: Cough, Shortness of Breath, SOB with Excertion, Sputum, Wheezing Cardiovascular: negative: chest pain, palpitations, orthopnea, paroxysmal nocturnal dyspnea, edema, light headedness - Medications/Allergies Allergies/Adverse Reactions: Allergies Allergy/AdvReac Type Severity Reaction Status Date / Time heparin Allergy Verified 11/13/17 16:11 Medications: Current Medications Albuterol/Ipratropium (Duoneb) 3 ml NEB Q4H PRN PRN Reason: Wheezing Enoxaparin Sodium (Lovenox) 80 mg SC 0900,2100 [facility] Last Admin: 07/17/18 09:16 Dose: 80 mg Famotidine (Pepcid) 20 mg PO Q12HR [facility] Last Admin: 07/17/18 09:17 Dose: Not Given Famotidine (Pepcid) 20 mg SLOW IVP Q12HR [facility] Last Admin: 07/17/18 09:17 Dose: 20 mg Fentanyl (Sublimaze) 25 mcg SLOW IVP Q2H PRN PRN Reason: Mild Pain (1-3) Fentanyl (Sublimaze) 50 mcg SLOW IVP Q2H PRN PRN Reason: Moderate to Severe Pain (6-10) Last Admin: 07/16/18 16:24 Dose: 50 mcg Hydralazine HCl (Apresoline) 10 mg SLOW IVP Q4H PRN PRN Reason: SBP > 170 or DBP > 100 Last Admin: 07/15/18 21:02 Dose: 10 mg Hydrocortisone Sodium Succinate (Solu-Cortef) 50 mg IVP Q8HR [facility] Last Admin: 07/17/18 06:34 Dose: 50 mg Sodium Chloride (Normal Saline 0.9%) 1,000 mls @ 125 mls/hr IV .Q8H [facility] Last Admin: 07/17/18 09:16 Dose: 1,000 mls Ondansetron HCl (Zofran) 4 mg IVP Q6H PRN PRN Reason: Nausea/Vomiting Last Admin: 07/15/18 02:33 Dose: 4 mg Phenol (Chloraseptic [place] 180 Ml Bot) 0 ml PO PRN PRN PRN Reason: SORE THROAT Last Admin: 07/15/18 12:38 Dose: 1 spray Promethazine HCl (Phenergan) 12.5 mg IM Q4H PRN PRN Reason: Nausea/Vomiting Last Admin: 07/15/18 07:56 Dose: 12.5 mg Sodium Chloride (Flush - Normal Saline) 10 ml IVF PRN PRN PRN Reason: Saline Flush Throat Lozenges (Cepastat Lozenges) 1 theresa PO PRN PRN PRN Reason: SORE THROAT Last Admin: 07/15/18 12:38 Dose: 1 theresa Tramadol HCl (Ultram) 50 mg PO Q4H PRN PRN Reason: Pain Last Admin: 07/17/18 06:34 Dose: 50 mg
--- NOTE | 2018-07-17 14:37 | PRG ---
DATE OF SERVICE: 07/17/2018 SUBJECTIVE: Mr. Hanson is doing well. He is tolerating the clear liquids now. OBJECTIVE: VITAL SIGNS: He is afebrile. Vital signs are stable. ABDOMEN: His abdomen is soft. He has active bowel sounds. Wound is healing well. ASSESSMENT: Postop day 4, small bowel resection for Crohn strictures, resolving ileus. PLAN: I am going to have him restart his Coumadin. We will do Lovenox shot today and tomorrow before discharge. He is able to take his own Coumadin that is fine. He is also going to restart his prednisone that was on before surgery. We will stop the IV hydrocortisone. If he tolerates the full liquids, he can go home tomorrow. Dr. Cam to see him for me tomorrow. Prescriptions for [place] and Zofran sent to his pharmacy in [place]. Job ID: [id number]
[2018-07-17] MEDS: Fentanyl 100 MCG/2 ML VIAL SLOW IVP PRN (23:28)
[2018-07-18] MEDS: Famotidine 20 MG TAB PO SCH ×2 (01:41→08:26)
[2018-07-18] MEDS: traMADol HCl 50 MG TAB PO PRN (08:25)
[2018-07-18] MEDS: Enoxaparin Sodium 80 MG/0.8 ML SYRINGE SC SCH (08:26)
[2018-07-18] MEDS: Famotidine/PF 20 mg/2ml Vial SLOW IVP SCH (08:29)
[2018-07-18] MEDS ORDERED: USTEKINUMAB 90 MG SC SCH ×2 (08:30→08:45)
[2018-07-18] MEDS ORDERED: Cyanocobalamin 1000 MCG/ML VIAL IM SCH (09:00)
[2018-07-18] MEDS ORDERED: Non-Formulary Item 1 EACH (Cholecalciferol (Vitamin D3) [Vitamin D3] 50,000 UNIT) PO SCH (09:00)
[2018-07-18] MEDS ORDERED: azaTHIOprine 50 MG TAB PO SCH (09:00)
[2018-07-18] MEDS ORDERED: Ergocalciferol 1.25 MG(50,000 UNITS) CAP PO SCH (09:00)
[2018-07-18] MEDS ORDERED: AZATHIOPRINE PO SCH (09:00)
[2018-07-18 12:32] VITALS: BP 182/91; TEMP 97.8
--- NOTE | 2018-07-18 15:46 | PDOC.PN ---
- Subjective Encounter Start Date: 07/18/18 Encounter Start Time: 15:44 Subjective: pt seen and examined. feels well. eating and ambulating -: 3-4 loose BMs -: no abd pain - Objective MAR Reviewed: Yes Vital Signs & Weight: Vital Signs (12 hours) Temp Pulse Resp BP Pulse Ox 07/18/18 12:31 97.8 F 52 L 16 182/91 H 97 07/18/18 08:00 97.7 F 49 L 12 149/79 H 95 07/18/18 04:35 98.0 F 48 L 20 151/80 H 95 Weight Admit Weight 205 lb Weight 205 lb I&O: 07/17/18 07/18/18 07/19/18 06:59 06:59 06:59 Intake Total 2200 1500 Output Total 1350 1450 Balance 850 50 Result Diagrams: 07/17/18 07:42 07/17/18 07:42 Additional Labs: Laboratory Tests 07/17/18 07:42 INR 1.5 Phys Exam - Physical Examination Constitutional: NAD HEENT: PERRLA, moist MMs, sclera anicteric, oral pharynx no lesions Neck: no nodes, no JVD, supple, full ROM Respiratory: no wheezing, no rales, no rhonchi, clear to auscultation bilateral Cardiovascular: RRR, no significant murmur, no rub Gastrointestinal: soft, non-tender, no distention, positive bowel sounds incison healthy Musculoskeletal: no edema, pulses present Neurological: non-focal, normal sensation, moves all 4 limbs Psychiatric: normal affect, A&O x 3 Dx/Plan (1) Chronic anticoagulation Code(s): Z79.01 - CARE HOME (CURRENT) USE OF ANTICOAGULANTS Status: Acute Comment: restarted on coumadin (2) S/P small bowel resection Code(s): Z90.49 - ACQUIRED ABSENCE OF OTHER SPECIFIED PARTS OF DIGESTIVE TRACT Status: Acute Comment: POD #% .For Crohn's stricture (3) Elevated blood pressure reading in office without diagnosis of hypertension Code(s): R03.0 - ELEVATED BLOOD-PRESSURE READING, W/O DIAGNOSIS OF HTN Status : Acute Comment: continue PRN IV hydralazine for blood pressure spikes, pt's SBP is elevated but below 170. Will give one time dose of IV hydralazine. (4) Crohn's disease Code(s): K50.90 - CROHN'S DISEASE, UNSPECIFIED, WITHOUT COMPLICATIONS Status: Chronic Comment: s/p surgery (5) H/O venous thrombosis and embolism Code(s): Z86.718 - PERSONAL HISTORY OF OTHER VENOUS THROMBOSIS AND EMBOLISM Status: Chronic Comment: continue Lovenox - Plan DVT proph w/SCDs OK to DC home when oK w Primary team -: pt encouraged to ambulate and cont Coumadin w close INR f/u -: ileus resolved -: HD stable * . Review of Systems - Review of Systems Constitutional: negative: fever, chills, sweats, weakness, malaise, other ENT: negative: Ear Pain, Ear Discharge, Nose Pain, Nose Discharge, Nose Congestion, Mouth Pain, Mouth Swelling, Throat Pain, Throat Swelling, Other Respiratory: negative: Cough, Dry, Shortness of Breath, Hemoptysis, SOB with Excertion, Pleuritic Pain, Sputum, Wheezing Cardiovascular: negative: chest pain, palpitations, orthopnea, paroxysmal nocturnal dyspnea, edema, light headedness, other Genitourinary: negative: Dysuria, Frequency, Incontinence, Hematuria, Retention , Other Neurological: negative: Weakness, Numbness, Incoordination, Change in Speech, Confusion, Seizures, Other - Medications/Allergies Allergies/Adverse Reactions: Allergies Allergy/AdvReac Type Severity Reaction Status Date / Time heparin Allergy Verified 11/13/17 16:11
--- NOTE | 2018-07-19 03:03 | DIS ---
DATE OF ADMISSION: 07/13/2018 DATE OF DISCHARGE: 07/18/2018 FINAL DIAGNOSES: 1. Crohn disease with ileal stricture x2. 2. History of deep vein thrombosis. 3. Postoperative ileus due to underlying disease. 4. Hypertension. PROCEDURES: Small bowel resection on 07/13/[address] Carcamo. HISTORY: Mr. Hanson is a 52-year-old male with long-standing Crohn disease. He presented with 2 ileal strictures requiring a small bowel resection. He recovered well, but had a postoperative ileus requiring bowel rest and decompression. This resolved and his diet and activities were able to be advanced. At the time of his discharge, he was tolerating a full liquid diet, having small bowel movements and passing gas. He had no nausea and his pain was controlled on minimal medications. He was maintained on Lovenox throughout his hospital stay and his Coumadin was restarted before his discharge. He was also restarted on his home dose of prednisone. He is to resume his pre-hospital medications and to follow up with Dr. Carcamo as instructed. He is to avoid any heavy lifting or straining and to advance his diet slowly as tolerated. Job ID: [id number]
[2018-07-19] MEDS ORDERED: predniSONE 20 MG TAB PO SCH (08:00)
== END 2018-07-18 13:39 | disposition home or self-care (01) | DRG 330 ==
LOC: SURG B 07-13 11:41 → SURG A 07-13 16:52
PROVIDERS: ADMIT Surgery; ATTEND Surgery
PROC: 0DBB0ZZ Excision of Ileum, Open Approach (ICD-10-PCS; principal; 2018-07-13)
DX: K50.018 Crohn's disease of small intestine with other complication (principal); K56.7 Ileus, unspecified; I10 Essential (primary) hypertension; Z86.718 Personal history of other venous thrombosis and embolism; Z79.01 Long term (current) use of anticoagulants; Z88.2 Allergy status to sulfonamides
CPT/HCPCS: 36415; 36416; 80048; 85025; 85610; 88307; J0131; J0360; J0670; J1100; J1650; J1720; J2001; J2250; J2270; J2405; J2550; J2704; J3010; J3420; J7500; S0028

== ENCOUNTER 2020-11-25 13:15 | Observation (INO) | payer BC ==
[2020-11-25 14:08] LABS: #Lymphocytes 0.7 thou/uL (1.20-3.40); #Monocytes 0.5 thou/uL (0.11-0.59); #Neutrophils 3.7 thou/uL (1.40-6.50); %Basophils 0.6 % (0.0-1.0); %Eosinophils 0.6 % (0.0-10.0); %Lymphocytes 13.7 % (21.0-51.0); %Neutrophils 75.1 % (42.0-75.0); Hemoglobin 12.5 g/dL (14.0-18.0); Mean Corpuscular HGB CONC 32.5 g/dL (32.0-36.0); Mean Corpuscular Hemoglobin 27.9 pg (27.0-31.0); Mean Corpuscular Volume 85.8 fL (78.0-98.0); Mean Platelet Volume 8.5 fL (7.4-10.4); Platelet Count 195 thou/uL (130-400); RBC Distribution Width 13.3 % (11.5-14.5); White Blood Cell (WBC) Count 4.9 thou/uL (4.8-10.8)
[2020-11-25 14:31] LABS: ALT (SGPT) 18 U/L (8-55); AST (SGOT) 20 U/L (5-34); Albumin 4.2 g/dL (3.5-5.0); Alkaline Phosphatase 44 U/L (40-110); Anion Gap 13 mmol/L (10-20); BUN (Urea Nitrogen) 17 mg/dL (8.4-25.7); Calc. Creatinine Clearance 0 mL/min (70-130); Calcium 9.1 mg/dL (7.8-10.44); Carbon Dioxide 22 mmol/L (22-29); Chloride 111 mmol/L (98-107); Globulin 2.8 g/dL (2.4-3.5); Glucose 99 mg/dL (70-105); Potassium 4.4 mmol/L (3.5-5.1); Sodium 142 mmol/L (136-145)
[2020-11-25] MEDS ORDERED: Pantoprazole 40 MG VIAL ONE (14:49)
[2020-11-25 15:01] LABS: Prothrombin Time 32.1 sec (12.0-14.7)
[2020-11-25] MEDS ORDERED: Bisacodyl 5 MG TAB PO PRN (15:55)
[2020-11-25] MEDS ORDERED: Acetaminophen 325 MG TAB PO PRN (15:55)
[2020-11-25] MEDS ORDERED: Ondansetron PF 4 MG/2 ML Vial IVP PRN (15:55)
[2020-11-25 16:08] LABS: Bilirubin Negative (Negative); Blood, Urine Negative (Negative); Clarity Clear (Clear); Glucose, Urine (Dipstick) Normal (Negative); Ketone, Urine Negative (Negative); Leukocyte Negative Leu/uL (Negative); Nitrite Negative (Negative); Protein, Urine (Dipstick) Negative (Neg-Trace); Specific Gravity, Urine 1.007 (1.002-1.036); Urobilinogen Normal mg/dL (Less than 2)
[2020-11-25] MEDS: Sodium Chloride 0.9% 1,000 ML IV SCH (17:34)
[2020-11-25 17:42] VITALS: BMI 26.9
[2020-11-25 17:56] LABS: Hemoglobin 12.6 g/dL (14.0-18.0)
[2020-11-25] MEDS ORDERED: GoLYTELY 4,000 ml Bottle PO SCH (18:15)
[2020-11-25 23:03] LABS: Hemoglobin 12.3 g/dL (14.0-18.0)
[2020-11-26 05:11] LABS: #Eosinphils 0.1 thou/uL (0.0-0.7); #Lymphocytes 0.8 thou/uL (1.20-3.40); #Monocytes 0.5 thou/uL (0.11-0.59); #Neutrophils 3.1 thou/uL (1.40-6.50); %Basophils 0.9 % (0.0-1.0); %Eosinophils 1.2 % (0.0-10.0); %Lymphocytes 17.2 % (21.0-51.0); %Monocytes 11.4 % (0.0-10.0); %Neutrophils 69.3 % (42.0-75.0); Hemoglobin 11.6 g/dL (14.0-18.0); Mean Corpuscular HGB CONC 32.1 g/dL (32.0-36.0); Mean Corpuscular Hemoglobin 27.2 pg (27.0-31.0); Mean Corpuscular Volume 84.5 fL (78.0-98.0); Mean Platelet Volume 8.5 fL (7.4-10.4); Platelet Count 179 thou/uL (130-400); RBC Distribution Width 13.2 % (11.5-14.5); Red Blood Cell (RBC) Count 4.28 mill/uL (4.70-6.10); White Blood Cell (WBC) Count 4.5 thou/uL (4.8-10.8)
[2020-11-26 05:17] LABS: INR-International Normal Ratio 2.8; Prothrombin Time 30.4 sec (12.0-14.7)
[2020-11-26 05:33] LABS: Anion Gap 11 mmol/L (10-20); BUN (Urea Nitrogen) 13 mg/dL (8.4-25.7); Calc. Creatinine Clearance 111 mL/min (70-130); Calcium 8.2 mg/dL (7.8-10.44); Carbon Dioxide 25 mmol/L (22-29); Chloride 111 mmol/L (98-107); Glucose 95 mg/dL (70-105); Potassium 3.8 mmol/L (3.5-5.1); Sodium 143 mmol/L (136-145)
[2020-11-26 06:11] LABS: SARS-CoV-2 NAA Rapid Test Not Detected (NotDetected)
[2020-11-26] MEDS: Sodium Chloride 0.9% 1,000 ML IV SCH (06:41)
[2020-11-26] MEDS ORDERED: PROPOFOL 200 MG/20 ML VIAL ONE (08:49)
[2020-11-26] MEDS ORDERED: Promethazine HCl 25 MG/ML VIAL IM PRN (08:52)
[2020-11-26] MEDS ORDERED: Promethazine HCl 25 MG/ML VIAL SLOW IVP PRN (08:52)
[2020-11-26] MEDS ORDERED: Ondansetron HCl/PF 4 MG/2 ML Vial IVP PRN ×2 (08:52→09:29)
[2020-11-26 11:38] VITALS: BP 140/71; TEMP 97.8
[2020-11-27] MEDS ORDERED: Pantoprazole 40 MG GRANULES PACKET PO SCH (09:00)
== END 2020-11-26 13:36 | disposition home or self-care (01) ==
LOC: ERS 13:15 → 2SW 14:54
PROVIDERS: ADMIT Family Medicine; ATTEND Internal Medicine
PROC: 0DJ08ZZ Inspection of Upper Intestinal Tract, Via Natural or Artificial Opening Endoscopic (ICD-10-PCS; principal; 2020-11-26)
PROC: 0DJD8ZZ Inspection of Lower Intestinal Tract, Via Natural or Artificial Opening Endoscopic (ICD-10-PCS; 2020-11-26)
DX: K22.11 Ulcer of esophagus with bleeding (principal); K63.3 Ulcer of intestine; K56.699 Other intestinal obstruction unspecified as to partial versus complete obstruction; K63.89 Other specified diseases of intestine; K64.8 Other hemorrhoids; K50.90 Crohn's disease, unspecified, without complications; Z86.718 Personal history of other venous thrombosis and embolism; Z79.01 Long term (current) use of anticoagulants; Z88.8 Allergy status to other drugs, medicaments and biological substances; Z91.011 Allergy to milk products; Z90.49 Acquired absence of other specified parts of digestive tract; Z95.820 Peripheral vascular angioplasty status with implants and grafts; Z20.822 Contact with and (suspected) exposure to COVID-19
CPT/HCPCS: 36415; 80048; 80053; 81003; 82274; 85025; 85610; 85730; 96374; C9113; G0378; J2704; U0002

== ENCOUNTER 2020-12-15 07:28 | Outpatient (CLI) | payer BC | END 2020-12-15 07:29 | disposition home or self-care (01) | LOC: NM 07:28 | PROVIDERS: ATTEND Physician Assistant Medical | DX: K92.2 Gastrointestinal hemorrhage, unspecified (principal) | CPT/HCPCS: 78290; A9512 ==

== ENCOUNTER 2022-09-27 10:23 | Outpatient (CLI) | payer BC | END 2022-09-27 10:24 | disposition home or self-care (01) | LOC: NM 10:23 | PROVIDERS: ATTEND Internal Medicine Gastroenterology | DX: K92.2 Gastrointestinal hemorrhage, unspecified (principal); K50.018 Crohn's disease of small intestine with other complication; D50.0 Iron deficiency anemia secondary to blood loss (chronic) | CPT/HCPCS: 78290; A9512 ==